=== PATIENT | female | born 1990 | race Caucasian/White ===

== ENCOUNTER 2018-05-15 18:37 | Emergency (ER) | payer SELFPAY ==
[~2018-05-15] VITALS: Wt 67.5 kg
[2018-05-15] MEDS ORDERED: FAMOTIDINE 20 MG TAB PO ONE (21:00)
[2018-05-15] MEDS ORDERED: DIPHENHYDRAMINE 50 MG INJ IM ONE (21:00)
[2018-05-15] MEDS ORDERED: METHYLPREDNISOLONE 125 MG INJ IM ONE (21:00)
[2018-05-15] MEDS ORDERED: BEN25 PO (21:02)
[2018-05-15] MEDS ORDERED: FAMO-96 PO (21:02)
[2018-05-15] MEDS ORDERED: PRED20TA PO (21:02)
[2018-05-15 21:57] VITALS: BP 116/78; PULSE 80; RESP 18
--- NOTE | 2018-05-16 01:31 | ERD ---
ER Documentation Chief Complaint Chief Complaint bib self, cc: rash all over body for the past 2 hours HPI 27-year-old female presents emergency department complaining of a pruritic rash throughout her body and face for the past 2 hours. Patient states that she took a antihistamine around 3 PM which is 6 hours prior to being seen. Unsure of the name. Patient states that she ate salmon last night but she is unsure what else she can be allergic to. Denies any other allergies to medications, denies new creams. Denies chest pain shortness of breath ROS All systems reviewed and are negative except as per history of present illness. Medications Home Meds Active Scripts Famotidine* (Pepcid*) 20 Mg Tablet, 20 MG PO BID for 4 Days, TAB Prov:PAUL MUSE PA-C 05/15/18 Diphenhydramine Hcl* (Benadryl*) 25 Mg Cap, 25-50 MG PO Q6 PRN for ITCHING/RASH, #30 TAB Prov:PAUL MUSE PA-C 05/15/18 Prednisone* (Prednisone*) 20 Mg Tab, 40 MG PO DAILY for 4 Days, TAB Prov:PAUL MUSE PA-C 05/15/18 Allergies Allergies: Coded Allergies: No Known Drug Allergies (Verified Allergy, Unknown, 05/15/18) PMhx/Soc Medical and Surgical Hx: pt denies Medical Hx, pt denies Surgical Hx Hx Alcohol Use: No Hx Substance Use: No Hx Tobacco Use: No Smoking Status: Never smoker Physical Exam Vitals Vital Signs Date Temp Pulse Resp B/P (MAP) Pulse Ox O2 O2 Flow FiO2 Time Delivery Rate 05/15/18 98.4 80 18 116/78 98 Room Air 21:57 (91) 05/15/18 98.0 82 19 126/65 100 18:46 (85) Physical Exam Const: No acute distress Head: Atraumatic Eyes: Normal Conjunctiva ENT: Normal External Ears, Nose and Mouth. Neck: Full range of motion. No meningismus. Resp: Clear to auscultation bilaterally Cardio: Regular rate and rhythm, no murmurs Abd: Soft, non tender, non distended. Normal bowel sounds Skin: Erythematous maculopapular rash throughout body, Back: No midline or flank tenderness Ext: No cyanosis, or edema Neur: Awake and alert Psych: Normal Mood and Affect Results 24 hrs Current Medications Medications Dose Sig/Edgard Start Time Status Last (Trade) Ordered Route PRN Stop Time Admin Dose Reason Admin 125 mg ONCE ONCE 05/15/18 DC 05/15/18 Methylprednis IM 21:00 05/15/18 21:29 olone Sodium 21:01 Succinate (Solu-Medrol) Famotidine 20 mg ONCE ONCE 05/15/18 DC 05/15/18 (Pepcid) PO 21:00 05/15/18 21:29 21:01 50 mg ONCE ONCE 05/15/18 DC 05/15/18 Diphenhydrami IM 21:00 05/15/18 21:30 ne HCl 21:01 (Benadryl) Procedures/MDM 27-year-old female presents with urticarial rash throughout body, likely to be an allergic reaction. Patient did not have any evidence of anaphylaxis. airways intact, lungs were clear. Patient was given Solu-Medrol, Benadryl and Pepcid in the ED. She is given a prescription for Pepcid, prednisone x 4 days and Benadryl as an outpatient. She stable to be discharged home with return precautions. Discussed with her to follow-up with her primary care physician she understands and agrees with plan Departure Diagnosis: Primary Impression: Allergic reaction Condition: Stable Patient Instructions: First Aid: Allergic Reactions, Allergic Reaction, Other ( General), Hives [facility] Usted se sales hecho un examen mdico de control que le indica que no est en ángel condicin que requiera tratamiento urgente en el Departamento de Emergencia. Un estudio ms profundo y el tratamiento de calderon condicin pueden esperar sin ningn riesgo hasta que usted sea atendida/o en el consultorio de calderon mdico o ángel clnica. Es responsabilidad suya arreglar ángel van para el seguimiento del nallely. MANEJO DE CONDICIONES NO URGENTES EN EL FUTURO 1) Si usted tiene un mdico de atencin primaria: Usted debera llamar a calderon mdico de atencin primaria antes de venir al departamento de emergencia. Despus de las horas de consultorio, calderon doctor o calderon asociado/a est disponible por telfono. El mdico o enfermero de margie en el servicio telefnico puede asesorarle por liss medio para atender el problema, o nallely contrario se puede programar ángel van. 2) Si usted no tiene un mdico de atencin primaria: Llame al mdico o clnica de referencia que aparece abajo dash las horas de consultorio para hacer ángel van para que le vean. CLINICAS: [place] [id number] [phone] [facility] [phone] [place] [id number] [phone] [place] [phone] [place] [id number] [phone] [facility] [phone] [address] Additional Instructions: Visite a calderon mdico maana para un EXAMEN.Regrese a estas instalaciones si no se mejora micah esperbamos o micah le dijimos. [place] toda la medicina vivian y micah se le indic. Regrese a estas instalaciones si no se mejora micah esperbamos o micah le dijimos. [place] toda la medicina vivian y micah se le indic. La medicina que se le recet puede causarle sueo.NO DEBE MANEJAR NI OPERAR MAQUINARIAS PELIGROSAS mientras esta tomando esta medicina! PAUL MUSE PA-C May 16, 2018 01:31
== END 2018-05-15 21:58 | disposition home or self-care (01) ==
LOC: FTE 18:37
DX: R21 Rash and other nonspecific skin eruption (principal)
CPT/HCPCS: 96372; 99284; J1200; J2930